=== PATIENT | male | born 1945 | race Caucasian/White ===

== ENCOUNTER 2016-07-30 19:06 | Emergency (ER) | payer OTHER, MEDICARE ==
[2016-07-30 21:11] LABS: HEMOGLOBIN 16.4 gm/dl (14.0-17.5); RED BLOOD COUNT 5.78 M/UL (4.20-5.50); WHITE BLOOD COUNT 4.9 K/UL (4.5-11.0)
[2016-07-30 21:36] LABS: BUN/CREATININE RATIO 15 (0-10)
== END 2016-07-31 00:09 | disposition home or self-care (01) ==
LOC: ER1 19:06
PROVIDERS: Physician Assistant
DX: M79.1 Myalgia (principal); M25.522 Pain in left elbow; M25.521 Pain in right elbow; M25.519 Pain in unspecified shoulder; M25.562 Pain in left knee; M25.561 Pain in right knee; M25.542 Pain in joints of left hand; M25.541 Pain in joints of right hand; T14.8 Other injury of unspecified body region; R41.0 Disorientation, unspecified; R05 Cough; R61 Generalized hyperhidrosis; R68.83 Chills (without fever); E11.9 Type 2 diabetes mellitus without complications; W57.XXXA Bitten or stung by nonvenomous insect and other nonvenomous arthropods, initial encounter
CPT/HCPCS: 36415; 70450; 71020; 80053; 82550; 82553; 83605; 83874; 84484; 85025; 86140; 86618; 87040; 93005; 99285